=== PATIENT | female | born 1955 | race American Indian/Alaskan Native ===

== ENCOUNTER 2018-09-09 10:55 | Outpatient (CLI) | payer BC ==
--- NOTE | 2018-09-09 12:12 | XRay Report ---
BILATERAL HIPS WITH PELVIS, 3 VIEWS: History: Pain. Bilateral primary osteoarthritis at Findings: Bone mineralization is within normal limits. There is no evidence for fracture, dislocation or pelvic diastasis. No advanced joint pathology is detected. The soft tissues are unremarkable. Impression: Unremarkable exam. No significant degenerative changes are present.
== END 2018-09-09 10:56 | disposition home or self-care (01) ==
LOC: XRAY 10:55
PROVIDERS: ATTEND Orthopaedic Surgery
DX: M16.0 Bilateral primary osteoarthritis of hip (principal)
CPT/HCPCS: 73521